=== PATIENT | female | born 1955 | race Two or more races ===

== ENCOUNTER 2019-06-30 20:42 | Emergency (ER) | payer MEDICAID, OTHER ==
[~2019-06-30] VITALS: Ht 154.9 cm; Wt 83.0 kg
[2019-07-01] MEDS ORDERED: KETOROLAC TROMETH 60MG/2ML VIAL IM ONE
[2019-07-01 00:21] VITALS: BP 138/63
== END 2019-07-01 01:05 | disposition home or self-care (01) ==
LOC: ER 20:44
DX: S33.5XXA Sprain of ligaments of lumbar spine, initial encounter (principal); M54.42 Lumbago with sciatica, left side; M62.830 Muscle spasm of back; Z88.1 Allergy status to other antibiotic agents; Z88.2 Allergy status to sulfonamides; X50.1XXA Overexertion from prolonged static or awkward postures, initial encounter; Y93.89 Activity, other specified; Y92.89 Other specified places as the place of occurrence of the external cause; Y99.8 Other external cause status
CPT/HCPCS: 96372; 99283; J1885

== ENCOUNTER 2022-03-13 19:30 | Emergency (ER) | payer OTHER, MEDICAID ==
[~2022-03-13] VITALS: Ht 154.9 cm; Wt 75.0 kg
[2022-03-13] MEDS ORDERED: MORPHINE SULFATE INJ 2 MG/ml SYRG IV ONE (21:30)
[2022-03-13] MEDS ORDERED: ONDANSETRON HCL 4 MG/2 ML VIAL IV ONE (21:30)
[2022-03-13] MEDS ORDERED: LORazepam 2MG/ML-1ML VIAL IV ONE (21:30)
[2022-03-13] MEDS ORDERED: HYDR-4902 PO (22:07)
[2022-03-13 22:20] VITALS: BP 139/83
== END 2022-03-13 22:08 | disposition home or self-care (01) ==
LOC: ER 19:32
DX: S52.501A Unspecified fracture of the lower end of right radius, initial encounter for closed fracture (principal); S52.611A Displaced fracture of right ulna styloid process, initial encounter for closed fracture; E11.9 Type 2 diabetes mellitus without complications; I10 Essential (primary) hypertension; Z88.1 Allergy status to other antibiotic agents; Z88.2 Allergy status to sulfonamides; W18.39XA Other fall on same level, initial encounter; Y93.89 Activity, other specified; Y92.89 Other specified places as the place of occurrence of the external cause; Y99.8 Other external cause status
CPT/HCPCS: 29125; 73110; 82962; 96374; 96375; 99284; J2060; J2270; J2405

== ENCOUNTER 2023-10-19 10:32 | Inpatient (IN) | payer MEDICAID, OTHER ==
[~2023-10-19] VITALS: Ht 160 cm; Wt 77.5 kg
[~2023-10-19 10:32] MED LIST: HYDR-4902 PO
[2023-10-19 11:00] VITALS: PULSE 87; RESP 18; O2SAT 93
[2023-10-19 11:01] LABS: Basophils # (auto) 0 10 ^3/uL (0-0.2); Basophils % (auto) 0.2 % (0.0-2.0); Eosinophils # (auto) 0 10 ^3/uL (0-0.8); Hemoglobin 13.7 g/dL (12.2-16.2); Lymphocytes # (auto) 0.7 10 ^3/uL (0.4-5.4); Lymphocytes % (auto) 3.5 % (10.0-50.0); Mean Corpuscular Hemoglobin 28.2 pg (28.0-32.0); Mean Corpuscular Hgb Conc. 32.5 g/dL (32.0-36.0); Mean Corpuscular Volume 86.9 fL (80.0-100.0); Neutrophils # (auto) 17.3 10 ^3/uL (1.6-8.6); Neutrophils % (auto) 91.3 % (37.0-80.0); Red Blood Cells 4.84 10^6/uL (4.0-5.20)
[2023-10-19] MEDS: SODIUM CHLORIDE 0.9% 500 ML IVB ONE (11:13)
[2023-10-19 11:17] LABS: Alanine Aminotransferase 13 U/L (7-40); Albumin 3.7 g/dL (3.2-4.8); Alkaline Phosphatase 124 U/L (46-116); Anion Gap 8 (5-15); Aspartate Aminotransferase 25 U/L (13-40); BUN/Creatinine Ratio 10.5 (10.0-20.0); Bilirubin, Total 0.5 mg/dL (0.2-1.0); Blood Urea Nitrogen 39 mg/dL (9-23); Carbon Dioxide 21 mmol/L (20-30); Chloride 104 mmol/L (98-107); Glucose 298 mg/dL (74-106); Lipase 35 U/L (12-53); Potassium 3.8 mmol/L (3.5-5.1); Sodium 133 mmol/L (136-145); Total Protein 6.8 g/dL (5.7-8.2)
[2023-10-19] MEDS ORDERED: MORPHINE SULFATE INJ 2 MG/ml SYRG IV PRN (18:30)
[2023-10-19] MEDS ORDERED: NITROGLYCERIN 0.4 MG SL TAB SL PRN (18:30)
[2023-10-19] MEDS ORDERED: ONDANSETRON HCL 4 MG/2 ML VIAL IV PRN (18:30)
[2023-10-19] MEDS: SODIUM CHLORIDE 0.9% 1,000 ML IV SCH (18:38)
[2023-10-19] MEDS: CIPROFLOXACIN 400MG/200ML 200 ML IV SCH (20:30)
[2023-10-19] MEDS: metroNIDAZOLE 500MG/100ML 100 ML IV SCH (22:45)
[2023-10-20] VITALS (7 sets, daily range): BP systolic 100–146; BP diastolic 45–59; PULSE 71–78; RESP 16–18; TEMP 36.6; O2SAT 96–100
[2023-10-20 06:06] LABS: Basophils # (auto) 0 10 ^3/uL (0-0.2); Basophils % (auto) 0.4 % (0.0-2.0); Eosinophils # (auto) 0 10 ^3/uL (0-0.8); Eosinophils % (auto) 0.1 % (0.0-7.0); Hematocrit 40.2 % (36.0-46.0); Hemoglobin 13.2 g/dL (12.2-16.2); Lymphocytes % (auto) 8.4 % (10.0-50.0); Mean Corpuscular Hemoglobin 28.6 pg (28.0-32.0); Mean Corpuscular Hgb Conc. 32.7 g/dL (32.0-36.0); Mean Corpuscular Volume 87.4 fL (80.0-100.0); Monocytes # (auto) 0.6 10 ^3/uL (0-1.3); Monocytes % (auto) 4.8 % (0.0-12.0); Neutrophils # (auto) 10.4 10 ^3/uL (1.6-8.6); Neutrophils % (auto) 86.3 % (37.0-80.0); Nucleated Red Blood Cells % 0.1 %; Red Cell Distribution Width 13.9 % (11.8-14.3)
[2023-10-20 06:18] LABS: Alanine Aminotransferase 13 U/L (7-40); Albumin 3.5 g/dL (3.2-4.8); Alkaline Phosphatase 105 U/L (46-116); Anion Gap 9 (5-15); Aspartate Aminotransferase 30 U/L (13-40); BUN/Creatinine Ratio 11.2 (10.0-20.0); Blood Urea Nitrogen 46 mg/dL (9-23); Calcium 8.9 mg/dL (8.5-10.1); Carbon Dioxide 21 mmol/L (20-30); Chloride 107 mmol/L (98-107); Glucose 116 mg/dL (74-106); Potassium 3.5 mmol/L (3.5-5.1); Sodium 137 mmol/L (136-145)
[2023-10-20 06:19] LABS: Bilirubin, Total 0.4 mg/dL (0.2-1.0); Total Protein 6.3 g/dL (5.7-8.2)
[2023-10-20] MEDS: metroNIDAZOLE 500MG/100ML 100 ML IV ONE (15:35)
[2023-10-21] VITALS (8 sets, daily range): BP systolic 99–125; BP diastolic 50–69; PULSE 69–90; RESP 17–20; TEMP 98.1–98.7; O2SAT 92–100
[2023-10-21 07:01] LABS: Anion Gap 10 (5-15); Carbon Dioxide 18 mmol/L (20-30); Chloride 107 mmol/L (98-107); Potassium 3.3 mmol/L (3.5-5.1); Sodium 135 mmol/L (136-145)
[2023-10-21 07:02] LABS: Calcium 8.5 mg/dL (8.5-10.1)
[2023-10-21 07:07] LABS: BUN/Creatinine Ratio 9.5 (10.0-20.0); Blood Urea Nitrogen 48 mg/dL (9-23); Glucose 161 mg/dL (74-106)
[2023-10-21 07:09] LABS: Phosphorus 5.7 mg/dL (2.4-5.1)
[2023-10-21] MEDS: ERGOCALCIFEROL 50,000 UNIT(1.25MG) CAP PO SCH (08:49)
[2023-10-21] MEDS: POTASSIUM CHL 20 Meq TABLET PO ONE (13:30)
[2023-10-21] MEDS ORDERED: LOPERAMIDE HCL 2 MG CAP/TAB PO PRN (15:30)
[2023-10-21] MEDS: LOPERAMIDE HCL 2 MG CAP/TAB PO PRN (20:11)
[2023-10-21 20:48] LABS: Urine Bacteria None Seen /hpf (None Seen)
[2023-10-21 20:56] LABS: Urine Blood TRACE /uL (Negative); Urine Clarity Turbid (Clear); Urine Color Yellow (Yellow); Urine Hyaline Cast FEW /lpf (0 - 2); Urine Mucus FEW (None Seen); Urine Protein, UAD 2+ (Negative); Urine Specific Gravity 1.015 (1.001-1.035); Urine Urobilinogen Normal (Negative); Urine WBC 11 /hpf (0 - 5); Urine pH 5.5 (5.0-9.0)
[2023-10-21 21:04] LABS: Protein, Urine 146.1 mg/dL (0.0-11.9)
[2023-10-21 21:07] LABS: Creatinine, Urine 150.38 mg/dL (30.0-125.0); Urine Protein/Creatinine Ratio 0.97
[2023-10-21] MEDS ORDERED: FINE10TA PO (22:51)
[2023-10-21] MEDS ORDERED: ATOR40TA52 PO (22:51)
[2023-10-21] MEDS ORDERED: FLUT50SP (22:51)
[2023-10-21] MEDS ORDERED: AMLO1TAB22 PO (22:51)
[2023-10-21] MEDS ORDERED: HYDR25TA5 PO (22:51)
[2023-10-21] MEDS ORDERED: OMEP1CAP70 PO (22:51)
[2023-10-21] MEDS ORDERED: SEMA4INJ SC (22:51)
[2023-10-21] MEDS ORDERED: LISI40TA16 PO (22:51)
[2023-10-21] MEDS ORDERED: ATEN50TA PO (22:51)
[2023-10-21] MEDS ORDERED: LORA-622 PO (22:51)
[2023-10-21] MEDS ORDERED: INSU1INJ19 SC (22:51)
[2023-10-21] MEDS ORDERED: GABA-1250 PO (22:51)
[2023-10-21] MEDS ORDERED: CLOP75TA70 PO (22:51)
[2023-10-22] VITALS (7 sets, daily range): BP systolic 120–147; BP diastolic 54–71; PULSE 65–85; RESP 16–20; TEMP 97.2–98.7; O2SAT 96–100
[2023-10-22] MEDS: GABAPENTIN 300 MG CAP PO ONE (03:29)
[2023-10-22 07:07] LABS: Calcium 8.3 mg/dL (8.7-10.4); Chloride 107 mmol/L (98-107); Potassium 3.7 mmol/L (3.5-5.1); Sodium 134 mmol/L (136-145)
[2023-10-22 07:08] LABS: Anion Gap 9 (5-15); Carbon Dioxide 18 mmol/L (20-30)
[2023-10-22 07:13] LABS: BUN/Creatinine Ratio 11.6 (10.0-20.0); Blood Urea Nitrogen 51 mg/dL (9-23)
[2023-10-22 07:43] LABS: Glucose 289 mg/dL (74-106)
[2023-10-22] MEDS: SEVELAMER 800 MG TAB PO SCH (10:11)
[2023-10-22] MEDS: SODIUM BICARBONATE 650 MG TAB PO SCH (10:11)
[2023-10-22] MEDS ORDERED: MET500T PO (13:15)
[2023-10-22] MEDS ORDERED: LEVO500T91 PO (13:15)
[2023-10-22] MEDS ORDERED: ZOFR4T PO (13:29)
== END 2023-10-22 17:00 | disposition home or self-care (01) | DRG 392 ==
LOC: EDBD 10:32 → ER 10:32 → UNDOADMOB 18:24 → TELE 18:24 → TELE-WESTW 10-20 12:16 → OBSVTOIN 10-20 21:47 → INTOOBSV 10-20 21:47 → WEST WING 10-20 23:42 → OBSVTOIN 10-20 23:42 → TELE-WESTW 10-20 23:42 → WEST WING 10-20 23:50
PROVIDERS: ADMIT Student in an Organized Health Care Education/Training Program; ATTEND Student in an Organized Health Care Education/Training Program
DX: K52.9 Noninfective gastroenteritis and colitis, unspecified (principal); N17.9 Acute kidney failure, unspecified; N18.4 Chronic kidney disease, stage 4 (severe); E11.22 Type 2 diabetes mellitus with diabetic chronic kidney disease; E55.9 Vitamin D deficiency, unspecified; E87.6 Hypokalemia; K76.0 Fatty (change of) liver, not elsewhere classified; E78.5 Hyperlipidemia, unspecified; J44.9 Chronic obstructive pulmonary disease, unspecified; G90.8 Other disorders of autonomic nervous system; I12.9 Hypertensive chronic kidney disease with stage 1 through stage 4 chronic kidney disease, or unspecified chronic kidney disease; Z86.73 Personal history of transient ischemic attack (TIA), and cerebral infarction without residual deficits; Z79.899 Other long term (current) drug therapy; E11.65 Type 2 diabetes mellitus with hyperglycemia
CPT/HCPCS: 36415; 74176; 80048; 80053; 81001; 82306; 82570; 83036; 83605; 83690; 83970; 84100; 84156; 85025; 87040; 87086; 87493; 93005; 96360; G0378; J2405; J3490